=== PATIENT | female | born 1980 | race Two or more races ===

== ENCOUNTER 2017-04-29 17:35 | Emergency (ER) | payer MEDICAID ==
[2017-04-29] MEDS ORDERED: DEXAMETHASONE 4 MG TABLET PO ONE (18:07)
[2017-04-29] MEDS ORDERED: NORMAL SALINE 1000 ML 1,000 ML IV ONE (18:26)
[2017-04-29] MEDS ORDERED: DEXAMETHASONE SOD PHOS INJ 10 MG/1 ML VIAL IV ONE (18:27)
--- NOTE | 2017-04-29 18:32 | ER Document Report ---
ED Medical Screen (RME) - General Chief Complaint: Sore Throat Stated Complaint: SWALLOWED FOREIGN BODY Time Seen by Provider: 04/29/17 18:07 Notes: Patient states approximately 20-30 minutes before arrival she was eating food at a restaurant. She states that she choked and then swallowed and felt something sharp go down. She states she feels it may have scratched her esophagus. She states that she overheard some workers talking and thinks this may be a bread type. She states with similar trauma in the past she has gone into [facility]. She does take steroids daily. She states normally when she has stress she requires Decadron IV. Patient's heart rate was 120 approximately in route to the hospital. TRAVEL OUTSIDE OF THE [place] IN LAST 30 DAYS: No - Related Data Allergies/Adverse Reactions: nifedipine [From Procardia] Allergy (Verified 04/29/17 17:38) prochlorperazine [From Compazine] Allergy (Verified 04/29/17 17:38) metal Allergy (Uncoded 04/29/17 17:38) Home Medications: Current Home Medications Alprazolam [Xanax] 2 mg PO BID 04/29/17 [History] Citalopram Hydrobromide [Celexa 40 mg Tablet] 1 tab PO DAILY 04/29/17 [History] Ferrous Sulfate [Iron] 325 mg PO BID 04/29/17 [History] Fludrocortisone Acetate 0.2 mg PO DAILY 04/29/17 [History] Hydrocodone/Acetaminophen [[place] 10-325 mg Tablet] 1 tab PO Q6 PRN 04/29/17 [ History] Morphine Sulfate [Morphine Ir 15 Mg Tablet] 15 mg PO BID 04/29/17 [History] Potassium Gluconate [Potassium] 600 mg PO BID 04/29/17 [History] Promethazine HCl [Phenergan 25 mg Tablet] 25 mg PO ASDIR PRN 04/29/17 [History] Past Medical History - Social History Chew tobacco use (# tins/day): No Frequency of alcohol use: None Drug Abuse: None Renal/ Medical History: Denies: Hx Peritoneal Dialysis - Immunizations Hx Diphtheria, Pertussis, Tetanus Vaccination: Yes History of Influenza Vaccine for 03/2017 - 08/2017 Season: Unknown Physical Exam - Vital signs Vitals: Temp Pulse Resp BP Pulse Ox 98.6 F 130 H 18 133/97 H 99 04/29/17 17:39 04/29/17 17:39 04/29/17 17:39 04/29/17 17:39 04/29/17 17:39 Course - Vital Signs Vital signs: Temp Pulse Resp BP Pulse Ox 98.6 F 130 H 18 133/97 H 99 04/29/17 17:39 04/29/17 17:39 04/29/17 17:39 04/29/17 17:39 04/29/17 17:39
[2017-04-29] MEDS ORDERED: DIPHENHYDRAMINE HCL 25 MG CAPSULE PO ONE (18:35)
[2017-04-29] MEDS ORDERED: DIPHENHYDRAMINE HCL 50 MG/ML VIAL IV ONE ×2 (18:37→21:55)
--- NOTE | 2017-04-29 18:45 | RADIOLOGY REPORT (SQ) ---
EXAM DESCRIPTION: CHEST PA/LAT COMPLETED DATE/TIME: 04/29/2017 6:27 pm REASON FOR STUDY: swallow fb? COMPARISON: None. EXAM PARAMETERS: NUMBER OF VIEWS: two views TECHNIQUE: Digital Frontal and Lateral radiographic views of the chest acquired. RADIATION DOSE: NA LIMITATIONS: none FINDINGS: LUNGS AND PLEURA: No opacities, masses or pneumothorax. No pleural effusion. MEDIASTINUM AND HILAR STRUCTURES: No masses or contour abnormalities. HEART AND VASCULAR STRUCTURES: Heart normal size. No evidence for failure. BONES: No acute findings. HARDWARE: Injection port on left. OTHER: No other significant finding. IMPRESSION: NO SIGNIFICANT RADIOGRAPHIC FINDING IN THE CHEST. TECHNICAL DOCUMENTATION: JOB ID: [id number] [employer]- All Rights Reserved
--- NOTE | 2017-04-29 18:47 | RADIOLOGY REPORT (SQ) ---
EXAM DESCRIPTION: KUB/ABDOMEN (SINGLE VIEW) COMPLETED DATE/TIME: 04/29/2017 6:27 pm REASON FOR STUDY: SWALLOW FB? COMPARISON: None. NUMBER OF VIEWS: One view. TECHNIQUE: Supine radiographic image of the abdomen acquired. LIMITATIONS: None. FINDINGS: BOWEL GAS PATTERN: Normal bowel gas pattern. No dilated loops. CALCIFICATIONS: No suspicious calcifications. SOFT TISSUES: No gross mass or suggestion of organomegaly. HARDWARE: None in the abdomen. BONES: No acute fracture. No worrisome bone lesions. OTHER: The that linear all foreign body is projected over the stomach having the appearance of a piec e of wire. IMPRESSION: Possible foreign body in the stomach. TECHNICAL DOCUMENTATION: JOB ID: [id number] [employer]- All Rights Reserved
--- NOTE | 2017-04-29 19:15 | ER Document Report ---
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 She can feel some epigastric discomfort and is feeling very anxious. Patient denies difficulty breathing, difficulty swallowing, nausea, vomiting, severe abdominal pain, chest pain or mouth discomfort. TRAVEL OUTSIDE OF THE [place] IN LAST 30 DAYS: No - Related Data Allergies/Adverse Reactions: nifedipine [From Procardia] Allergy (Verified 04/29/17 17:38) prochlorperazine [From Compazine] Allergy (Verified 04/29/17 17:38) metal Allergy (Uncoded 04/29/17 17:38) Home Medications: Current Home Medications Alprazolam [Xanax] 2 mg PO BID 04/29/17 [History] Citalopram Hydrobromide [Celexa 40 mg Tablet] 1 tab PO DAILY 04/29/17 [History] Ferrous Sulfate [Iron] 325 mg PO BID 04/29/17 [History] Fludrocortisone Acetate 0.2 mg PO DAILY 04/29/17 [History] Hydrocodone/Acetaminophen [[place] 10-325 mg Tablet] 1 tab PO Q6 PRN 04/29/17 [ History] Morphine Sulfate [Morphine Ir 15 Mg Tablet] 15 mg PO BID 04/29/17 [History] Potassium Gluconate [Potassium] 600 mg PO BID 04/29/17 [History] Promethazine HCl [Phenergan 25 mg Tablet] 25 mg PO ASDIR PRN 04/29/17 [History] Past Medical History - General Information source: Patient - Social History Smoking Status: Unknown if Ever Smoked Chew tobacco use (# tins/day): No Frequency of alcohol use: None Drug Abuse: None Family History: Reviewed & Not Pertinent Patient has suicidal ideation: No Patient has homicidal ideation: No Renal/ Medical History: Denies: Hx Peritoneal Dialysis - Immunizations Hx Diphtheria, Pertussis, Tetanus Vaccination: Yes Review of Systems - Review of Systems Notes: REVIEW OF SYSTEMS: CONSTITUTIONAL: -fevers, -chills EENT: -eye pain, -difficulty swallowing, -nasal congestion CARDIOVASCULAR: -chest pain, -syncope. RESPIRATORY: -cough, -SOB GASTROINTESTINAL: +epigastric abdominal pain, -nausea, -vomiting, -diarrhea GENITOURINARY: -dysuria, -hematuria MUSCULOSKELETAL: -back pain, -neck pain SKIN: -rash or skin lesions. HEMATOLOGIC: -easy bruising or bleeding. LYMPHATIC: -swollen, enlarged glands. NEUROLOGICAL: -altered mental status or loss of consciousness, -headache, - neurologic symptoms PSYCHIATRIC: +anxiety, -depression. ALL OTHER SYSTEMS REVIEWED AND NEGATIVE. Physical Exam - Vital signs Vitals: Temp Pulse Resp BP Pulse Ox 98.6 F 130 H 18 133/97 H 99 04/29/17 17:39 04/29/17 17:39 04/29/17 17:39 04/29/17 17:39 04/29/17 17:39 - Notes Notes: PHYSICAL EXAMINATION: GENERAL: Well-appearing, well-nourished and in no acute distress. HEAD: Atraumatic, normocephalic. EYES: Pupils equal round and reactive to light, extraocular movements intact, sclera anicteric, conjunctiva are normal. ENT: nares patent, oropharynx clear without exudates. Moist mucous membranes. NECK: Normal range of motion, supple without lymphadenopathy LUNGS: Breath sounds clear to auscultation bilaterally and equal. No wheezes rales or rhonchi. HEART: Regular rate and rhythm without murmurs ABDOMEN: Soft, mild epigastric tenderness, normoactive bowel sounds. No guarding, no rebound. No masses appreciated. EXTREMITIES: Normal range of motion, no pitting or edema. No cyanosis. NEUROLOGICAL: Cranial nerves grossly intact. Normal speech, normal gait. Normal sensory and motor exams. PSYCH: Mildly anxious. SKIN: Warm, Dry, normal turgor, no rashes or lesions noted. Course - Re-evaluation Re-evalutation: 04/29/17 19:15 Pt's initial tachycardia on triage resolved upon my evaluation. Her KUB x-ray shows the twist tie sitting in her stomach. Due to the two sharp ends of the twist tie and the location in the stomach, spoke to Dr. Urrutia ( surgicalist) and he will be down to perform an EGD and remove the twist tie. 04/29/17 22:01 Dr. Urrutia has removed the twist tie while in the ER and patient is wide awake and tolerating oral fluids. Will discharge patient home with return precautions. - Vital Signs Vital signs: Temp Pulse Resp BP Pulse Ox 98.6 F 110 H 17 125/100 H 96 04/29/17 17:39 04/29/17 21:45 04/29/17 21:45 04/29/17 21:45 04/29/17 21:45 - Laboratory Result Diagrams: 04/29/17 20:05 04/29/17 20:05 Laboratory results interpreted by me: 04/29/17 20:05 AST 45 H Total Protein 5.9 L - Diagnostic Test Radiology reviewed: Image reviewed, Reports reviewed Radiology results interpreted by me: KUB: zip tie in stomach Discharge - Discharge Clinical Impression: Foreign body ingestion Qualifiers: Encounter type: initial encounter Qualified Code(s): T18.9XXA - Foreign body of alimentary tract, part unspecified, initial encounter Condition: Stable Disposition: HOME, SELF-CARE Additional Instructions: If you have worsening abdominal pain or any other concerns, return immediately to the emergency room. Prescriptions: Omeprazole Magnesium [Prilosec Otc] 20 mg PO BID PRN #10 tablet.dr SHEPPARD Reason:
[2017-04-29] MEDS ORDERED: NALOXONE HCL INJ/PF 0.4 MG/1 ML SDV ONE (20:12)
[2017-04-29] MEDS ORDERED: ONDANSETRON HCL INJ/PF 4 MG/2 ML SDV ONE (20:12)
[2017-04-29] MEDS ORDERED: GLYCOPYRROLATE INJ 0.4 MG/2 ML VIAL ONE (20:12)
[2017-04-29] MEDS ORDERED: EPINEPHRINE INJ 1 MG/10 ML DISP.SYRIN ONE (20:13)
[2017-04-29] MEDS ORDERED: GLUCAGON,HUMAN RECOMB 1 MG INJ ONE (20:13)
[2017-04-29] MEDS ORDERED: FLUMAZENIL INJ 0.5 MG/5 ML VIAL ONE (20:13)
[2017-04-29 20:19] LABS: ABSOLUTE EOSINOPHILS # (AUTO) 0.1 10^3/uL (0.0-0.6); ABSOLUTE MONOCYTES (AUTO) 0.6 10^3/uL (0.1-1.4); BASOPHILS % (AUTO) 0.4 % (0-2); EOSINOPHILS % (AUTO) 1.1 % (0-6); HEMATOCRIT 37.6 % (36.0-47.0); HEMOGLOBIN 13.1 g/dL (12.0-15.5); HGB HCT DIFFERENCE 1.7; LYMPHOCYTES % (AUTO) 22.7 % (13-45); MEAN CORPUSCULAR HEMOGLOBIN 30.5 pg (27.0-33.4); MEAN CORPUSCULAR HGB CONC 34.9 g/dL (32.0-36.0); MEAN CORPUSCULAR VOLUME 87 fl (80-97); MONOCYTES % (AUTO) 6.7 % (3-13); RED CELL DISTRIBUTION WIDTH 13.3 % (11.5-14.0); SEGMENTED NEUTROPHILS % (AUTO) 69.1 % (42-78); WHITE BLOOD COUNT 8.7 10^3/uL (4.0-10.5)
[2017-04-29] MEDS: MIDAZOLAM 2 MG/2 ML INJ ONE ×4 (20:40→20:55)
[2017-04-29] MEDS: FENTANYL CITRATE INJ/PF 100 MCG/2 ML AMPUL ONE ×2 (20:42→20:53)
[2017-04-29 20:46] LABS: ALANINE AMINOTRANSFERASE 48 U/L (9-52); ALBUMIN 3.6 g/dL (3.5-5.0); ALKALINE PHOSPHATASE 100 U/L (38-126); ANION GAP 10 (5-19); ASPARTATE AMINO TRANSFERASE 45 U/L (14-36); BILIRUBIN,DIRECT 0.4 mg/dL (0.0-0.4); BILIRUBIN,TOTAL 0.5 mg/dL (0.2-1.3); BLOOD UREA NITROGEN 9 mg/dL (7-20); CALCIUM 9.3 mg/dL (8.4-10.2); CARBON DIOXIDE 26 mmol/L (22-30); CHLORIDE 104 mmol/L (98-107); CREATININE RESULT 0.56 mg/dL (0.52-1.25); GLUCOSE 101 mg/dL (75-110); SODIUM 139.9 mmol/L (137-145); TOTAL PROTEIN 5.9 g/dL (6.3-8.2)
[2017-04-29] MEDS ORDERED: METOCLOPRAMIDE HCL ORAL SOLN 10 MG/10 ML UDCUP PO ONE (21:55)
[2017-04-29] MEDS ORDERED: LIDOCAINE 2% VISCOUS SOLN 20 ML UDCUP PO ONE (21:55)
[2017-04-29] MEDS ORDERED: MAG HYDROX/AL HYDROX/SIMETH SUSP 30 ML UDCUP PO ONE (21:55)
[2017-04-29] MEDS ORDERED: HYDROCODONE/ACETAMINOPHEN 5-325 MG TABLET PO ONE (21:55)
[2017-04-29 22:16] VITALS: BP 134/110
--- NOTE | 2017-04-29 22:43 | OPERATIVE REPORT E ---
Operative Report NAME: ERIK ROMERO : 1980 AGE: 37Y DATE OF SURGERY: 04/29/2017 ROOM: PREOPERATIVE DIAGNOSES: 1. History of ovarian carcinoma. 2. Status post ingestion of foreign body (metallic twister). POSTOPERATIVE DIAGNOSES: 1. History of ovarian carcinoma. 2. Status post ingestion of foreign body (metallic twister). OPERATION: 1. Esophagogastroduodenoscopy. 2. Endoscopic retrieval of foreign body. 3. Interpretation of portable chest x-ray. SURGEON: JOLENE ZEPEDA M.D. CHIEF WARDEN: Conscious sedation. COMPLICATIONS: None. ESTIMATED BLOOD LOSS: None. DRAINS: None. TISSUE REMOVED OR ALTERED: None. SUMMARY OF PROCEDURE: After informed consent, and reviewing the imaging studies, the decision was made to perform upper endoscopy based on the history of ingestion of a red metallic twister while the patient was eating at [employer] this evening. The portable x-ray showed retained foreign body consistent with a 3-inch wire in the patient's left upper quadrant. Informed consent was provided. The patient was taken to the trauma bay room 2, where she was placed in the semirecumbent left position, right side up, mouthpiece inserted, and appropriate level of conscious sedation induced. A total of 8 mg of Versed and 200 mcg of fentanyl were required to sedate the patient. We proceeded with upper endoscopy with the adult endoscope. The hypopharynx and esophagus were unremarkable. Upon entry into the stomach, there were multiple boluses of incomplete digested food with particulate including small wlof slices, and slices of mushrooms. We spent a fair amount of time irrigating to breaking up these areas and no foreign body was seen. I then placed the patient in the right lateral decubitus position, left side up, and repeated the upper endoscopy, after removal and reinsertion of the endoscope. Again, more undigested food globs were broken up with various instruments, but no foreign body could be seen. We removed the upper endoscope and performed an abdominal film, which showed retention of the foreign body in the left upper quadrant. The patient used the bed lucia during this hiatus. We placed the patient back in the left lateral decubitus position, reinserted the mouthpiece and reinserted the upper endoscope. This time we broke up the final retained food bolus in the mid body of the stomach and we did see the electric wirer device, which was retained by securing it with the cold forceps device. The scope, forceps, and foreign body were removed in their entirety. The foreign body with wire was removed intact. It was retained for the patient in a container. We felt the procedure was complete. Observation was executed by the medical staff in the emergency department. The patient tolerated the procedure well. DICTATING PHYSICIAN: JOLENE ZEPEDA M.D. [id number] PHY#: [id number] ID: [id number] JOB#: [id number] ACCT: [id number] cc:JOLENE ZEPEDA M.D. > MTDD
== END 2017-04-29 22:17 | disposition home or self-care (01) ==
LOC: ER 17:35
DX: T18.2XXA Foreign body in stomach, initial encounter (principal); X58.XXXA Exposure to other specified factors, initial encounter; Y93.89 Activity, other specified; Y92.511 Restaurant or cafe as the place of occurrence of the external cause; Z85.43 Personal history of malignant neoplasm of ovary; Z88.8 Allergy status to other drugs, medicaments and biological substances; Z91.048 Other nonmedicinal substance allergy status; R10.13 Epigastric pain; F41.9 Anxiety disorder, unspecified
CPT/HCPCS: 36591; 99284; 96361; 96374; 96375; 43247; 36415; 85025; 80053; 71020; 74000; J2250; J1200; J3010; J3490 ×3; J7030; J1100; J0171; J1610; J2310; J2405